=== PATIENT | male | born 1985 | race Caucasian/White ===

== ENCOUNTER 2016-10-03 14:45 | Emergency (ER) | payer MEDICAID ==
[~2016-10-03] VITALS: Ht 177.8 cm; Wt 114.9 kg
[2016-10-03 18:34] VITALS: BP 140/64
== END 2016-10-03 18:34 | disposition home or self-care (01) ==
LOC: ED 14:45
DX: K61.0 Anal abscess (principal)
CPT/HCPCS: J1885; J2001